=== PATIENT | male | born 1960 | race Caucasian/White ===

== ENCOUNTER → 2017-10-14 | Outpatient (CLI) | payer OTHER, MEDICAID ==
[~2017-10-14] MED LIST: BENA20TA14 PO; BUPR-4 PO; CARI-277 PO; HYDR12.56 PO; LEVE250T18 PO; MORP30TA PO; SIMV-8 PO; TRAZ150T79 PO
== END | disposition home or self-care (01) ==
LOC: Rad HDHVI 13:59
PROVIDERS: ATTEND Internal Medicine Cardiovascular Disease
DX: I08.1 Rheumatic disorders of both mitral and tricuspid valves (principal)
CPT/HCPCS: 93306

== ENCOUNTER 2024-02-16 16:05 | Emergency (ER) | payer OTHER, MEDICAID ==
[~2024-02-16] VITALS: Ht 190.5 cm; Wt 107.2 kg
[~2024-02-16 16:05] MED LIST changes: +BENA-36 PO; -BENA20TA14 PO; -HYDR12.56 PO; +HYDR12.59 PO; -SIMV-8 PO; +SIMV20TA20 PO; -TRAZ150T79 PO; +TRAZ1TAB12 PO
[2024-02-16] MEDS ORDERED: SODIUM CHLORIDE 0.9% 500 ML IVB ONE (17:00)
[2024-02-16 18:25] LABS: Basophils # (auto) 0 10 ^3/uL (0-0.2); Basophils % (auto) 0.3 % (0.0-2.0); Eosinophils # (auto) 0.4 10 ^3/uL (0-0.8); Eosinophils % (auto) 2.9 % (0.0-7.0); Hematocrit 53.2 % (41.0-53.0); Hemoglobin 18.2 g/dL (13.5-17.5); Lymphocytes # (auto) 3.7 10 ^3/uL (0.4-5.4); Lymphocytes % (auto) 26.8 % (10.0-50.0); Mean Corpuscular Hemoglobin 31.6 pg (28.0-32.0); Mean Corpuscular Hgb Conc. 34.1 g/dL (32.0-36.0); Mean Corpuscular Volume 92.7 fL (80.0-100.0); Monocytes # (auto) 1.5 10 ^3/uL (0-1.3); Monocytes % (auto) 10.9 % (0.0-12.0); Neutrophils # (auto) 8.1 10 ^3/uL (1.6-8.6); Neutrophils % (auto) 59.1 % (37.0-80.0); Nucleated Red Blood Cells % 0.2 %; Red Blood Cells 5.75 10^6/uL (4.5-5.90); White Blood Cell 13.6 10^3/uL (4.4-10.8)
[2024-02-16 18:47] LABS: Alanine Aminotransferase 36 U/L (7-40); Albumin 4.6 g/dL (3.2-4.8); Alkaline Phosphatase 91 U/L (46-116); Anion Gap 9 (5-15); Aspartate Aminotransferase 26 U/L (13-40); BUN/Creatinine Ratio 14.8 (10.0-20.0); Bilirubin, Total 0.3 mg/dL (0.2-1.0); Blood Urea Nitrogen 19 mg/dL (9-23); Calcium 9.8 mg/dL (8.7-10.4); Carbon Dioxide 31 mmol/L (20-30); Chloride 96 mmol/L (98-107); Glucose 107 mg/dL (74-106); Magnesium 2.3 mg/dL (1.6-2.6); Potassium 3.7 mmol/L (3.5-5.1); Sodium 136 mmol/L (136-145); Total Protein 7.3 g/dL (5.7-8.2)
[2024-02-16] MEDS ORDERED: CIPROFLOXACIN 400MG/200ML 200 ML IV ONE (20:00)
[2024-02-16] MEDS ORDERED: ZOFR4T PO (22:29)
[2024-02-16] MEDS ORDERED: LEVO500T91 PO (22:29)
[2024-02-16] MEDS ORDERED: METR-344 PO (22:29)
[2024-02-16 22:41] VITALS: TEMP 98.4
[2024-02-16 22:42] VITALS: PULSE 102; RESP 16; O2SAT 98
[2024-02-16] MEDS: SODIUM CHLORIDE 0.9% 1,000 ML IV ONE ×2 (22:52→23:18)
[2024-02-16] MEDS: levoFLOXacin 500 MG TAB PO ONE (22:52)
[2024-02-16] MEDS: metroNIDAZOLE 500MG/100ML 100 ML IV ONE (22:52)
[2024-02-16] MEDS: LOPERAMIDE HCL 2 MG CAP/TAB PO ONE (22:53)
[2024-02-17 00:21] VITALS: BP 132/71; PULSE 86; RESP 16; O2SAT 98
[2024-02-17 00:54] LABS: Urine Bacteria None Seen /hpf (None Seen)
[2024-02-17 01:01] LABS: Urine Blood Negative /uL (Negative); Urine Clarity Clear (Clear); Urine Color Light-Yellow (Yellow); Urine Mucus FEW (None Seen); Urine Protein, UAD Negative (Negative); Urine Specific Gravity 1.014 (1.001-1.035); Urine Urobilinogen Normal (Negative); Urine WBC 2 /hpf (0 - 3); Urine pH 6.5 (5.0-9.0)
[2024-02-17 01:40] LABS: Amphetamine Screen, Urine Neg (NEGATIVE); Barbiturate Scree,Urine Neg (NEGATIVE); Benzodiazephine Screen, Urine Neg (NEGATIVE); Cocaine Screen, Urine Neg (NEGATIVE); Opiate Scree,Urine Neg (NEGATIVE)
[2024-02-17 01:41] LABS: Cannabinoid Screen, Urine Neg (NEGATIVE); Phencyclidine Screen, Urine Neg (NEGATIVE)
== END 2024-02-17 00:36 | disposition home or self-care (01) ==
LOC: ER 16:05
DX: R55 Syncope and collapse (principal); R53.1 Weakness; E78.5 Hyperlipidemia, unspecified; I10 Essential (primary) hypertension; Z86.16 Personal history of COVID-19; Z79.899 Other long term (current) drug therapy; Z87.891 Personal history of nicotine dependence; X58.XXXA Exposure to other specified factors, initial encounter; Y93.89 Activity, other specified; Y92.89 Other specified places as the place of occurrence of the external cause; Y99.8 Other external cause status
CPT/HCPCS: 36415; 70450; 71046; 74176; 80053; 80307; 81001; 82962; 83735; 84484; 85025; 85379; 87045; 87427; 87493; 93005; 96365; 99284; J3490; J7030